=== PATIENT | female | born 1990 | race African-American/Black ===

== ENCOUNTER 2017-10-25 16:25 | Emergency (ER) | payer BC, OTHER ==
[~2017-10-25] VITALS: Ht 160 cm; Wt 118.0 kg
[~2017-10-25 16:25] MED LIST: FERR-43 PO; PREN-88 PO
[2017-10-25 17:36] LABS: BASOPHILS % 0.8 % (0.0-2.0); EOSINOPHILS % 0.8 % (0.0-5.0); HEMATOCRIT. 37.9 % (36.0-48.0); HEMOGLOBIN. 12.7 g/dL (12.0-16.0); LYMPHOCYTES % 17.1 % (20.0-50.0); MEAN CORPUSCULAR HEMOGLOBIN 30.6 pg (28.0-32.0); MEAN CORPUSCULAR VOLUME 90.9 fL (81.0-99.0); MEAN PLATELET VOLUME 9.3 fl (7.4-10.4); MONOCYTES % 7.6 % (2.0-8.0); NEUTROPHILS % 73.7 % (40.0-76.0); PLATELET 236 x1000/uL (130-400); RED BLOOD CELL COUNT 4.17 mill/uL (4.2-5.4); RED CELL DISTRIBUTION WIDTH 13.8 % (11.6-14.6)
[2017-10-25 17:40] LABS: CHLORIDE 104 mEq/L (98-107)
[2017-10-25 17:42] LABS: INR 1.1; PROTHROMBIN TIME 11.1 sec (9.4-11.6)
[2017-10-25 18:04] LABS: B-HCG QUANTITATIVE 10345 mIU/mL (<3)
[2017-10-25 18:13] LABS: CLARITY URINE CLEAR (CLEAR); COLOR URINE DARK YELLOW (YELLOW); KETONES URINE 4+ (NEGATIVE); LEUKOCYTE ESTERASE URINE 2+ (NEGATIVE); NITRITE URINE NEGATIVE (NEGATIVE); OCCULT BLOOD URINE 1+ (NEGATIVE); PROTEIN URINE NEGATIVE (NEGATIVE); SPECIFIC GRAVITY URINE 1.027 (1.005-1.030)
[2017-10-25] MEDS ORDERED: ONDANSETRON HCL 4MG/2ML VIAL IV ONE (19:00)
[2017-10-25] MEDS ORDERED: SODIUM CHLORIDE 0.9% 1,000 ML IV ONE (19:04)
[2017-10-25 22:23] VITALS: BP 122/57
== END 2017-10-25 22:27 | disposition home or self-care (01) ==
LOC: ER 16:25
DX: O23.41 Unspecified infection of urinary tract in pregnancy, first trimester (principal); O26.91 Pregnancy related conditions, unspecified, first trimester; R07.9 Chest pain, unspecified; Z3A.01 Less than 8 weeks gestation of pregnancy
CPT/HCPCS: 36415; 76801; 80053; 81003; 83880; 84484; 84702; 85025; 85610; 85730; 93005; 96361; 96374; 99285; J2405; J7030; Z7610

== ENCOUNTER 2017-12-16 10:46 | Emergency (ER) | payer BC, OTHER ==
[~2017-12-16] VITALS: Ht 162.6 cm; Wt 116.0 kg
[2017-12-16 11:45] LABS: BASOPHILS % 1.1 % (0.0-2.0); EOSINOPHILS % 0.9 % (0.0-5.0); HEMATOCRIT. 40.8 % (36.0-48.0); HEMOGLOBIN. 13.7 g/dL (12.0-16.0); LYMPHOCYTES % 14.9 % (20.0-50.0); MEAN CORPUSCULAR VOLUME 92.3 fL (81.0-99.0); MEAN PLATELET VOLUME 10.4 fl (7.4-10.4); MONOCYTES % 7.7 % (2.0-8.0); NEUTROPHILS % 75.4 % (40.0-76.0); PLATELET 238 x1000/uL (130-400); RED BLOOD CELL COUNT 4.42 mill/uL (4.2-5.4); RED CELL DISTRIBUTION WIDTH 13.8 % (11.6-14.6)
[2017-12-16 11:52] LABS: CHLORIDE 108 mEq/L (98-107)
[2017-12-16 12:06] LABS: B-HCG QUANTITATIVE 3 mIU/mL (<3)
[2017-12-16 12:14] LABS: CLARITY URINE CLOUDY (CLEAR); COLOR URINE ORANGE (YELLOW); KETONES URINE 2+ (NEGATIVE); LEUKOCYTE ESTERASE URINE 1+ (NEGATIVE); NITRITE URINE NEGATIVE (NEGATIVE); OCCULT BLOOD URINE 3+ (NEGATIVE); PROTEIN URINE 1+ (NEGATIVE); SPECIFIC GRAVITY URINE 1.024 (1.005-1.030)
[2017-12-16] MEDS ORDERED: ACETAMINOPHEN 325MG TABLET PO ONE (12:15)
[2017-12-16 14:32] VITALS: BP 114/61
== END 2017-12-16 14:34 | disposition home or self-care (01) ==
LOC: ER 10:46
DX: O03.9 Complete or unspecified spontaneous abortion without complication (principal); N83.201 Unspecified ovarian cyst, right side
CPT/HCPCS: 36415; 76830; 76856; 80053; 81003; 81025; 84702; 85025; 86886; 86901; 99285; Z7610

== ENCOUNTER 2019-01-21 08:00 | Emergency (ER) | payer BC, OTHER ==
[~2019-01-21] VITALS: Ht 162.6 cm; Wt 109.0 kg
[2019-01-21] MEDS ORDERED: LORAZEPAM 1MG TABLET PO ONE (08:45)
[2019-01-21 09:50] VITALS: BP 126/69
== END 2019-01-21 09:54 | disposition home or self-care (01) ==
LOC: ER 08:00
DX: R07.89 Other chest pain (principal); M54.6 Pain in thoracic spine; F12.10 Cannabis abuse, uncomplicated
CPT/HCPCS: 71045; 81025; 93005; 99283

== ENCOUNTER 2021-05-30 23:06 | Emergency (ER) | payer MEDICAID, OTHER ==
[~2021-05-30] VITALS: Ht 162.6 cm; Wt 109.0 kg
[2021-05-30] MEDS ORDERED: ONDANSETRON HCL 4MG/2ML INJ IV STA (23:18)
[2021-05-30] MEDS ORDERED: MORPHINE SULFATE 4 MG/ML CPJ (NOT FOR IM USE) IV STA (23:18)
[2021-05-30 23:57] LABS: BASOPHILS % 0.8 % (0.0-2.0); EOSINOPHILS % 2.7 % (0.0-5.0); HEMATOCRIT. 40.2 % (36.0-48.0); HEMOGLOBIN. 13.2 g/dL (12.0-16.0); LYMPHOCYTES % 19.3 % (20.0-50.0); MEAN CORPUSCULAR HEMOGLOBIN 30.5 pg (28.0-32.0); MEAN CORPUSCULAR VOLUME 92.9 fL (81.0-99.0); MEAN PLATELET VOLUME 9.7 fl (7.4-10.4); MONOCYTES % 9.6 % (2.0-8.0); NEUTROPHILS % 67.6 % (40.0-76.0); PLATELET 283 x1000/uL (130-400); RED BLOOD CELL COUNT 4.33 mill/uL (4.2-5.4); RED CELL DISTRIBUTION WIDTH 13.9 % (11.6-14.6)
[2021-05-31 00:03] LABS: CLARITY URINE CLOUDY (CLEAR); COLOR URINE YELLOW (YELLOW); KETONES URINE TRACE (NEGATIVE); LEUKOCYTE ESTERASE URINE 1+ (NEGATIVE); NITRITE URINE NEGATIVE (NEGATIVE); OCCULT BLOOD URINE 2+ (NEGATIVE); PH URINE 5.5 (4.5-8.0); PROTEIN URINE TRACE (NEGATIVE); SPECIFIC GRAVITY URINE 1.033 (1.005-1.030); UROBILINOGEN URINE 0.2 E.U./dL (0.2-1.0)
[2021-05-31 00:03] LABS: CHLORIDE 109 mEq/L (98-107)
[2021-05-31 00:13] LABS: HCG SCREEN NEGATIVE
[2021-05-31] MEDS ORDERED: KETOROLAC 60MG/2ML VIAL IM ONE (01:15)
[2021-05-31] MEDS ORDERED: ONDANSETRON HCL 4MG/2ML INJ IV ONE (01:45)
[2021-05-31] MEDS ORDERED: KETOROLAC 15MG/ML VIAL IV ONE (01:45)
[2021-05-31] MEDS ORDERED: CEFTRIAXONE 1 G PREMIX 50 ML IV ONE (02:00)
[2021-05-31] MEDS ORDERED: MORPHINE SULFATE 4 MG/ML CPJ (NOT FOR IM USE) IV ONE (02:45)
[2021-05-31 02:47] VITALS: BP 117/70
[2021-05-31] MEDS ORDERED: CEPH500C2 MT (02:55)
== END 2021-05-31 03:14 | disposition home or self-care (01) ==
LOC: ER 23:06
DX: N10 Acute pyelonephritis (principal); N39.0 Urinary tract infection, site not specified; K76.0 Fatty (change of) liver, not elsewhere classified; F12.10 Cannabis abuse, uncomplicated
CPT/HCPCS: 36415; 76705; 80053; 81003; 81025; 83690; 84703; 85025; 87086; 93005; 96365; 96375; 99285; J0696; J2270; J2405; J1885